=== PATIENT | male | born 1940 | race Caucasian/White ===

== ENCOUNTER 2017-03-11 06:58 | Day surgery (SDC) | payer OTHER ==
--- NOTE | ~2017-03-11 | EGD ---
EGD REPORT [facility] [address] [id number] NAME: ANTHONY INIGUEZ : [birth year] STATUS : REG [facility] [place] PAT#: [id number] AGE: 76 ADM/REG DATE : 03/11/17 MR#: [id number] REPORT SERV DATE: 03/11/17 DICTATED BY: GABRIELLE BROUSSARD DATE: 03/11/17 REPORT STATUS : Draft TRANS[facility]IBED BY: [facility] DATE: 03/11/17 Endoscopy Center Patient Name: Anthony Iniguez Date of : 1940 Attending MD: GABRIELLE BROUSSARD MD Procedure Date No Time: 03/11/2017 Procedure: Upper GI endoscopy Indications: Follow-up of acute gastric ulcer with hemorrhage Referring MD: SNOW SCHROEDER Medicines: Propofol per Anesthesia Complications: No immediate complications. Procedure: Pre-Anesthesia Assessment: - ASA Grade Assessment: III - A patient with severe systemic disease. After obtaining informed consent, the endoscope was passed under direct vision. Throughout the procedure, the patient's blood pressure, pulse, and oxygen saturations were monitored continuously. The GIF [id number] was introduced through the mouth, and advanced to the third part of duodenum. The upper GI endoscopy was accomplished without difficulty. The patient tolerated the procedure well. Findings: The examined esophagus was normal. A small hiatus hernia was present. as seen on retroflexion Diffuse mild inflammation characterized by congestion (edema) and erythema was found in the entire examined stomach. Biopsies were taken with a cold forceps for Helicobacter pylori testing. The gastric ulcer seen previously have healed. Biopsies were taken with a cold forceps for histology. Localized mild inflammation characterized by congestion (edema) and erythema was found in the duodenal bulb. The 2nd part of the duodenum and 3rd part of the duodenum were normal. Impression: - Normal esophagus. - Hiatus hernia. - Gastritis. Biopsied. - The gastric ulcer seen previously have healed. - Duodenitis. - Normal 2nd part of the duodenum and 3rd part of the duodenum. Recommendation: - Patient has a contact number available for emergencies. The signs and symptoms of potential delayed EGD REPORT [address] [place]. [address] NAME: ANTHONY INIGUEZ : [birth year] STATUS : REG [facility] [place] PAT#: [id number] AGE: 76 ADM/REG DATE : 03/11/17 MR#: [id number] REPORT SERV DATE: 03/11/17 DICTATED BY: GABRIELLE BROUSSARD DATE: 03/11/17 REPORT STATUS : Draft TRANSCRIBED BY: [facility] DATE: 03/11/17 complications were discussed with the patient. Return to normal activities tomorrow. Written discharge instructions were provided to the patient. - Return to previous diet. - Continue present medications. - Use Protonix (pantoprazole) 40 mg PO BID. - take 30-60 minutes before breakfast and supper - Discontinue Carafate (sucralfate). - Return to my office as previously scheduled. - Discharge patient to home. Procedure Code(s): --- Professional --- 48241, Esophagogastroduodenoscopy, flexible, transoral; with biopsy, single or multiple Diagnosis Code(s): --- Professional --- K44.9, Diaphragmatic hernia without obstruction or gangrene K29.70, Gastritis, unspecified, without bleeding K29.80, Duodenitis without bleeding K25.0, Acute gastric ulcer with hemorrhage CPT copyright 2013 [employer]. All rights reserved. The codes documented in this report are preliminary and upon financial systems analyst review may be revised to meet current compliance requirements. Gabrielle Broussard MD GABRIELLE BROUSSARD MD 03/11/2017 9:26 AM This report has been signed electronically. Number of Addenda: 0 Note Initiated On: 03/11/2017 9:00 AM Scope Withdrawal Time 0 hours 0 minutes 0 seconds [address] [place] [address]
[~2017-03-11 06:58] MED LIST: ACET500CAP PO; AMARYL1 MG PO; ASAB PO; ATEN50 PO; COREG12 PO; COZ25 PO; EFFEXXR75 PO; FERROUS SULF325 M1 PO; FLOMAX4 PO; GLUCOPHAGE1000 MG PO; KLOR-CON 1010 MEQ PO; L20 PO; LAN125 PO; MELA3 PO; NEUR600 PO; NITROSTAT0.4 MG PO; PRIN20 PO; PROTONIX PO; SUCR PO; XARELTO20 MG PO; ZOCOR20 PO; ZOLOFT25 MG PO
== END 2017-03-11 23:59 | disposition home or self-care (01) ==
LOC: DMU 06:58
PROVIDERS: Internal Medicine Gastroenterology
PROC: 0DB68ZZ Excision of Stomach, Via Natural or Artificial Opening Endoscopic (ICD-10-PCS; principal; 2017-03-11 08:30)
DX: K29.50 Unspecified chronic gastritis without bleeding (principal); B96.81 Helicobacter pylori [H. pylori] as the cause of diseases classified elsewhere; K44.9 Diaphragmatic hernia without obstruction or gangrene; K29.80 Duodenitis without bleeding; K25.0 Acute gastric ulcer with hemorrhage; I10 Essential (primary) hypertension; G47.419 Narcolepsy without cataplexy; I48.0 Paroxysmal atrial fibrillation; J44.9 Chronic obstructive pulmonary disease, unspecified; E11.9 Type 2 diabetes mellitus without complications; Z95.1 Presence of aortocoronary bypass graft; Z88.6 Allergy status to analgesic agent; Z79.82 Long term (current) use of aspirin; Z79.899 Other long term (current) drug therapy
CPT/HCPCS: 82962; 88305; 88342